=== PATIENT | male | born 1950 | race Caucasian/White ===

== ENCOUNTER 2022-08-01 08:49 | Day surgery (SDC) | payer MEDICARE, BC ==
[2022-08-01] MEDS ORDERED: Lactated Ringers 1,000 ML IV SCH (09:00)
[2022-08-01] MEDS ORDERED: Sodium Chloride 0.9% 10 ML Syringe FLUSH PRN (09:00)
[2022-08-01] MEDS ORDERED: Lactated Ringers 1,000 ML ONE (09:01)
[2022-08-01] MEDS ORDERED: Midazolam 1 MG/ML 2 ML SDV ONE (10:00)
[2022-08-01] MEDS ORDERED: Propofol 200 MG/20 ML SDV ONE (10:00)
== END 2022-08-01 11:40 | disposition home or self-care (01) ==
LOC: KA.SDS 08:49
PROVIDERS: ATTEND Family Medicine
DX: Z12.11 Encounter for screening for malignant neoplasm of colon (principal); K63.5 Polyp of colon; K57.30 Diverticulosis of large intestine without perforation or abscess without bleeding; K64.8 Other hemorrhoids; I10 Essential (primary) hypertension; E78.5 Hyperlipidemia, unspecified; C61 Malignant neoplasm of prostate; F32.A Depression, unspecified; K21.9 Gastro-esophageal reflux disease without esophagitis; E78.00 Pure hypercholesterolemia, unspecified; Z98.890 Other specified postprocedural states; Z79.899 Other long term (current) drug therapy; Z88.8 Allergy status to other drugs, medicaments and biological substances; Z20.822 Contact with and (suspected) exposure to COVID-19
CPT/HCPCS: 00812; J2250; J2704; J7120

== ENCOUNTER 2025-06-19 09:20 | Emergency (ER) | payer BC, MEDICARE, OTHER | END 2025-06-19 14:34 | disposition home or self-care (01) | LOC: KA.ED 09:26 | DX: S32.029A Unspecified fracture of second lumbar vertebra, initial encounter for closed fracture (principal); S01.412A Laceration without foreign body of left cheek and temporomandibular area, initial encounter; I10 Essential (primary) hypertension; Z88.6 Allergy status to analgesic agent; Z79.899 Other long term (current) drug therapy; W06.XXXA Fall from bed, initial encounter; Y93.89 Activity, other specified | CPT/HCPCS: 72131; 99284 ==